=== PATIENT | female | born 1955 | race Caucasian/White ===

== ENCOUNTER 2024-04-26 09:48 | Outpatient (CLI) | payer MEDICARE, OTHER | END 2024-04-26 09:49 | disposition home or self-care (01) | LOC: SCSMRI 09:48 | PROVIDERS: ATTEND Family Medicine | DX: K86.2 Cyst of pancreas (principal); K82.8 Other specified diseases of gallbladder; K80.20 Calculus of gallbladder without cholecystitis without obstruction | CPT/HCPCS: 36415; 74183; 76376; 82565 ==